=== PATIENT | female | born 2005 | race Two or more races ===

== ENCOUNTER 2025-08-04 01:16 | Emergency (ER) | payer MEDICAID, OTHER ==
[~2025-08-04] VITALS: Ht 157.5 cm; Wt 54.0 kg
[2025-08-04 01:19] VITALS: BP 133/82; PULSE 91; RESP 18; TEMP 98.3; O2SAT 96
--- NOTE | 2025-08-04 01:56 | ED.PDOC ---
HPI (NEURO) HPI Comments 20-year-old female presents to the ED status post head injury. Patient states she was on her friend's back when she fell backwards and hit the back of her head on the floor. She is complaining of mild headache 3/10 on pain scale pressure type headache in the back of the head. She remembers the entire event denies LOC denies nausea, vomiting, dizziness, shortness of breath, chest pain, vision changes, neck pain, back pain or abdominal pain. Chief Complaint: Head Injury Time Seen by MD: :28 Reviewed Notes: Nurses Notes, Medications, Allergies Information Source: Patient Mode of Arrival: Ambulatory Past Medical History PAST MEDICAL HISTORY: Denies Surgical History: Denies all surgeries LAUNDRY CLERK History: No Pertinent LAUNDRY CLERK History All Other Systems: Reviewed and Negative (see hpi) Physical Exam General Appearance: No Apparent Distress, Normal HEENT: Normal ENT Inspection, Pharynx Normal, TMs Normal Neck: Full Range of Motion, Non-Tender Respiratory: Chest Non-Tender, Lungs Clear, No Accessory Muscle Use, No Respiratory Distress, Normal Breath Sounds Cardiovascular: No Edema, No JVD, No Murmur, No Gallop, Normal Peripheral Pulses, Regular Rate/Rhythm Breast Exam: Deferred Gastrointestinal: No Organomegaly, Non Tender, No Pulsatile Mass, Normal Bowel Sounds, Soft Genitalia: Deferred Pelvic: Deferred Rectal: Deferred Extremities: Normal capillary refill, Normal range of motion, Non-tender, No pedal edema Musculoskeletal : Apperance: Normal Neurologic: Alert, No Motor Deficits, Normal Affect, Normal Mood, No Sensory Deficits Cerebellar Function: Normal Reflexes: Normal Skin: Dry, Normal Color, Warm Lymphatic: No Adenopathy Was a procedure done? Was a procedure done?: No Differential Diagnosis (SZ) Headache: Epidural Hemorrhage, Intracerebral Hemorrhage, Subarachnoid Hemorrhage, Post-Traumatic X-Ray, Labs, Meds, VS Vital Signs Date Time Temp Pulse Resp B/P (MAP) Pulse Ox O2 Delivery O2 Flow Rate FiO2 08/04/25 01:19 98.3 91 18 133/82 96 98.3 X-Ray, Labs, Meds, VS Comment Advised to rest increase p.o. fluids with electrolytes. Light diet. Monitor for the next 24-48 hours avoid visual stimuli such as computer games, video games, or cell phone use to avoid headaches. Avoid vigorous activity. Return to the ER for nonstop vomiting, numbness, weakness, slurred speech, lethargy, or any concerning symptoms. Pt indicates understanding and agrees with discharge plan of care Time of 1ST Reevaluation: 01:28 Reevaluation 1ST: Unchanged Time of 2ND Reevaluation: 01:55 Reevaluation 2ND: Improved Patient Education/Counseling: Diagnosis, Treatment, Need For Follow Up Family Education/Counseling: No Family Present Departure 1 Departure Time of Disposition: 01:55 Impression: Primary Impression: Concussion Qualified Codes: S06.0X0A - Concussion without loss of consciousness, initial encounter Disposition: 01 HOME / SELF CARE / HOMELESS Condition: Stable Discharged With: Self Critical Care Note Critical Care Time?: No Stability Stability form required: ZAID Mike Aug 04, 2025 01:56
== END 2025-08-04 02:01 | disposition home or self-care (01) ==
LOC: ER 01:16
DX: S06.0X0A Concussion without loss of consciousness, initial encounter (principal); W19.XXXA Unspecified fall, initial encounter; Y93.89 Activity, other specified; Y92.89 Other specified places as the place of occurrence of the external cause; Y99.8 Other external cause status